=== PATIENT | female | born 1955 | race Two or more races ===

== ENCOUNTER 2023-09-08 18:14 | Inpatient (IN) | payer OTHER ==
[~2023-09-08] VITALS: Ht 167.6 cm; Wt 72.6 kg
[2023-09-08] MEDS ORDERED: DEXAMETHAS0.5 MG/5 M (18:58)
[2023-09-08] MEDS ORDERED: ATORVASTATIN CA10 MG PO (18:58)
[2023-09-08] MEDS ORDERED: CICLOPIROX15 GM (18:58)
[2023-09-08] MEDS ORDERED: LEVOTHYROXINE75 MCG PO (18:59)
[2023-09-08] MEDS ORDERED: 0.9 % SODIUM CHLORIDE 500 ML IV ONE (19:30)
[2023-09-08] MEDS ORDERED: ONDANSETRON HCL 2 MG/ML VIAL IV ONE (19:30)
[2023-09-08] MEDS ORDERED: FAMOTIDINE/PF 20 MG/2 ML VIAL IV ONE (19:45)
[2023-09-08] MEDS ORDERED: TRAMADOL HCL 50 MG TABLET PO ONE (19:45)
[2023-09-08 20:05] LABS: HEMATOCRIT 42.5 % (36.0-45.00); HEMOGLOBIN 14.1 g/dL (12.0-15.00); MEAN CELL VOLUME 83.2 fL (80.00-100.00); MEAN CORPUSCULAR HEMOGLOBIN 27.7 pg (27.00-32.0); MEAN CORPUSCULAR HGB CONC 33.2 g/dl (32.0-36.0); PLATELET COUNT 245 K/uL (150-450); RED CELL DISTRIBUTION WIDTH 14.8 % (11.5-14.5)
[2023-09-08 20:24] LABS: ALBUMIN 3.6 gm/dL (3.4-5.0); BILIRUBIN TOTAL 0.33 mg/dL (0.3-1.2); CALCIUM 9.8 mg/dL (8.5-10.1); CREATININE SERUM 0.74 mg/dL (0.55-1.02); GFR 77.81; GLOBULINA 4.1 G/DL (2.4-3.5); POTASSIUM 4.67 mEq/L (3.5-5.1); TOTAL PROTEIN 7.7 gm/dL (6.4-8.2)
[2023-09-08 20:57] LABS: PH,URINE 5.5 (5.0-8.0); URINE APPEARANCE Turbid; URINE BILIRRUBIN Negative (NEGATIVE); URINE BLOOD Large; URINE COLOR Orange; URINE LEUKOCYTE Moderate; URINE NITRATE Positive
[2023-09-08 20:58] LABS: URINE BACTERIA 5764.3 uL (0.0-1933); URINE EPITHELIAL CELLS 2.6 uL (0.0-38.8)
[2023-09-08 21:15] LABS: URINE GLUCOSE >=1000 MG/DL (NEGATIVE); URINE PROTEIN 300 (NEGATIVE); URINE RBC > 10558.9 uL (0.0-20.8); URINE YEAST MODERATE /hpf
[2023-09-08] MEDS ORDERED: CIPROFLOXACIN IN 5 % DEXTROSE 400 MG/200 ML PIGGYBAG IV ONE (21:30)
[2023-09-08] MEDS ORDERED: 0.9 % SODIUM CHLORIDE 1,000 ML IV SCH (23:45)
[2023-09-08] MEDS ORDERED: ONDANSETRON HCL 4 MG in 0.9 % SODIUM CHLORIDE 50 ML IV PRN (23:45)
[2023-09-08] MEDS ORDERED: ACETAMINOPHEN 500 MG GEL..CAP PO PRN (23:45)
[2023-09-08] MEDS ORDERED: KETOROLAC TROMETHAMINE 15 MG VIAL IU ONE (23:45)
[2023-09-09] MEDS ORDERED: PIPERACILLIN/TAZOBACTAM SODIUM 3.375 GM in DEXTROSE 5 % IN WATER 100 ML IV SCH
[2023-09-09] MEDS ORDERED: IPRATROPIUM BROMIDE 0.5 MG/2.5 ML AMPUL.NEB IH SCH (01:00)
[2023-09-09 01:20] LABS: INR 0.96; PARTIAL THROMBOPLASTIN TIME 28.2 SECONDS (22.0-34.0); PROTHROMBIN TIME 10.1 SECONDS (9.0-11.5)
[2023-09-09] MEDS ORDERED: LEVOTHYROXINE SODIUM 75 MCG TABLET PO SCH (06:00)
[2023-09-09] MEDS ORDERED: ATORVASTATIN CALCIUM 10 MG TABLET PO SCH (09:00)
[2023-09-09] MEDS ORDERED: LISINOPRIL 40 MG TABLET PO SCH (09:00)
[2023-09-09] MEDS ORDERED: FAMOTIDINE/PF 20 MG in 0.9 % SODIUM CHLORIDE 8 ML IV PUSH SCH (09:00)
[2023-09-09] MEDS ORDERED: JANUMET 50-1,01 EACH (13:58)
[2023-09-09] MEDS ORDERED: STIOLTO RESPIMAT4 GM (13:58)
[2023-09-09] MEDS ORDERED: LIPITOR40 M1 (13:59)
[2023-09-09] MEDS ORDERED: LISINOPRIL20 MG (13:59)
[2023-09-09] MEDS ORDERED: FLONASE16 GM (13:59)
[2023-09-09] MEDS ORDERED: CEFTRIAXONE SODIUM 2,000 MG VIAL IV SCH (17:00)
[2023-09-10] MEDS ORDERED: GLIPIZIDE 10 MG TABLET PO SCH (09:00)
[2023-09-10 18:35] LABS: URINE APPEARANCE Clear; URINE BACTERIA 11.3 uL (0.0-1933); URINE BILIRRUBIN Negative (NEGATIVE); URINE BLOOD Negative; URINE COLOR Yellow; URINE EPITHELIAL CELLS 8.9 uL (0.0-38.8); URINE LEUKOCYTE Negative; URINE NITRATE Negative; URINE PROTEIN Negative (NEGATIVE); URINE UROBILINOGEN 0.2 E.U./dl; URINE WBC 17.4 uL (0.0-23.2)
[2023-09-10 18:47] LABS: URINE GLUCOSE >=1000 MG/DL (NEGATIVE)
[2023-09-11 06:13] LABS: HEMATOCRIT 36.5 % (36.0-45.00); HEMOGLOBIN 12.2 g/dL (12.0-15.00); MEAN CELL VOLUME 82.4 fL (80.00-100.00); MEAN CORPUSCULAR HEMOGLOBIN 27.5 pg (27.00-32.0); MEAN CORPUSCULAR HGB CONC 33.4 g/dl (32.0-36.0); PLATELET COUNT 192 K/uL (150-450); RED BLOOD COUNT 4.43 M/uL (4.00-6.00); RED CELL DISTRIBUTION WIDTH 14.9 % (11.5-14.5)
[2023-09-11 06:53] LABS: ALBUMIN 2.9 gm/dL (3.4-5.0); BILIRUBIN TOTAL 0.22 mg/dL (0.3-1.2); CALCIUM 8.8 mg/dL (8.5-10.1); CREATININE SERUM 0.4 mg/dL (0.55-1.02); GFR 158.26; MAGNESIUM 1.7 mg/dL (1.8-2.4); POTASSIUM 4.27 mEq/L (3.5-5.1); TOTAL PROTEIN 5.9 gm/dL (6.4-8.2)
[2023-09-11 07:04] LABS: C-REACTIVE PROTEIN 1.51 MG/DL (0.00-0.29)
== END 2023-09-11 14:54 | disposition home or self-care (01) | DRG 690 ==
LOC: ER 18:15 → MEDI 23:44
PROVIDERS: General Practice; Internal Medicine Infectious Disease; Nurse Practitioner Family; ADMIT Internal Medicine; ATTEND Internal Medicine
PROC: BW21ZZZ Computerized Tomography (CT Scan) of Abdomen and Pelvis (ICD-10-PCS; principal; 2023-09-08)
PROC: 3E0F7GC Introduction of Other Therapeutic Substance into Respiratory Tract, Via Natural or Artificial Opening (ICD-10-PCS; 2023-09-09)
DX: N39.0 Urinary tract infection, site not specified (principal); R65.10 Systemic inflammatory response syndrome (SIRS) of non-infectious origin without acute organ dysfunction; B96.20 Unspecified Escherichia coli [E. coli] as the cause of diseases classified elsewhere; R31.9 Hematuria, unspecified; E11.9 Type 2 diabetes mellitus without complications; I10 Essential (primary) hypertension